=== PATIENT | female | born 1945 | race Caucasian/White ===

== ENCOUNTER 2021-04-25 15:33 | Emergency (ER) | payer MEDICARE | END 2021-04-25 17:18 | disposition home or self-care (01) | LOC: BURERS 15:33 | DX: S02.2XXA Fracture of nasal bones, initial encounter for closed fracture (principal); S00.531A Contusion of lip, initial encounter; I48.91 Unspecified atrial fibrillation; I10 Essential (primary) hypertension; E78.5 Hyperlipidemia, unspecified; Z79.899 Other long term (current) drug therapy; Z79.82 Long term (current) use of aspirin; W19.XXXA Unspecified fall, initial encounter | CPT/HCPCS: 12011; 70450; 70486; 72125 ==

== ENCOUNTER 2023-12-05 10:35 | Emergency (ER) | payer MEDICARE, OTHER ==
[2023-12-05] MEDS ORDERED: Morphine 4 MG/ML VIAL ONE (11:16)
[2023-12-05] MEDS ORDERED: Ondansetron PF 4 MG/2 ML Vial ONE (11:16)
[2023-12-05 11:21] LABS: Prothrombin Time 12.7 sec (12.0-14.7)
[2023-12-05 11:22] LABS: PTT 28.8 sec (22.9-36.1)
[2023-12-05 11:32] LABS: ALT (SGPT) 30 U/L (8-55); AST (SGOT) 32 U/L (5-34); Albumin 3.5 g/dL (3.4-4.8); Alkaline Phosphatase 167 U/L (40-110); Anion Gap 15 mmol/L (10-20); BUN (Urea Nitrogen) 25 mg/dL (9.8-20.1); Bilirubin, Total 0.4 mg/dL (0.2-1.2); Calc. Creatinine Clearance 0 mL/min (70-130); Calcium 9.8 mg/dL (7.8-10.44); Carbon Dioxide 22 mmol/L (23-31); Chloride 108 mmol/L (98-107); Estimated GFR 85; Globulin 3.3 g/dL (2.4-3.5); Glucose 127 mg/dL (83-110); Lipase 19 U/L (8-78); Potassium 4.4 mmol/L (3.5-5.1); Protein, Total 6.8 g/dL (5.8-8.1); Sodium 141 mmol/L (136-145)
[2023-12-05 11:34] LABS: #Basophils 0.1 thou/uL (0.0-0.2); #Eosinphils 0.2 thou/uL (0.0-0.7); #Lymphocytes 0.7 thou/uL (1.20-3.40); #Monocytes 0.4 thou/uL (0.11-0.59); #Neutrophils 10.5 thou/uL (1.40-6.50); %Basophils 0.6 % (0.0-1.0); %Eosinophils 1.4 % (0.0-10.0); %Monocytes 3.1 % (0.0-10.0); Hypochromia SLIGHT = 6-15 cells (100X) (0-5/hpf); MDiff Complete? YES; Mean Corpuscular HGB CONC 30.4 g/dL (32.0-36.0); Mean Corpuscular Hemoglobin 22.5 pg (27.0-31.0); Mean Corpuscular Volume 73.9 fl (78.0-98.0); Mean Platelet Volume 6.9 fL (7.4-10.4); Microcytosis SLIGHT = 6-15 cells (100X) (0-5/hpf); Ovalocytes SLIGHT = 2-5 cells (100X) (0-1/hpf); Platelet Count 297 10x3/uL (130-400); RBC Distribution Width 15.2 % (11.5-14.5); Red Blood Cell (RBC) Count 4.47 mill/uL (4.20-5.40); White Blood Cell (WBC) Count 11.8 10x3/uL (4.8-10.8)
[2023-12-05] MEDS ORDERED: Acetaminophen 325 MG TAB ONE (13:00)
[2023-12-05] MEDS ORDERED: hydrALAZINE 20 MG/ML VIAL ONE (14:28)
== END 2023-12-05 17:08 | disposition short-term general hospital (02) ==
LOC: BURERS 10:35
DX: S32.011A Stable burst fracture of first lumbar vertebra, initial encounter for closed fracture (principal); I10 Essential (primary) hypertension; I48.91 Unspecified atrial fibrillation; W06.XXXA Fall from bed, initial encounter
CPT/HCPCS: 36415; 70450; 71260; 74177; 80053; 83690; 85025; 85610; 85730; 96374; 96375; J0360; J2270; J2405